=== PATIENT | female | born 1990 | race Caucasian/White ===

== ENCOUNTER 2021-05-14 13:12 | Emergency (ER) | payer SELFPAY ==
[2021-05-14] VITALS (7 sets, daily range): BP systolic 115–155; BP diastolic 63–90; PULSE 51–93; RESP 15–18; TEMP 36.3–36.9; O2SAT 98–100; BMI 22.1
--- NOTE | 2021-05-14 15:22 | MHC.RECOVRN ---
T/w met with pt briefly to explain that ATS beds have been unavailable and that it might take some time to be seen by ED provider. Pt open to being transported to [place] for [facility] to continue bedsearch. Pt reports dog with her is a service dog and must go with her to ATS. T/w reached out to [facility] to see if they can accommodate pt, awaiting call back.
--- NOTE | 2021-05-14 16:15 | MHC.RECOVRN ---
[facility] reports not being able to obtain ATS beds as well. [facility], [facility] will not accept pt with service dog. Pt aware.
--- NOTE | 2021-05-14 16:21 | MHC.RECOVRN ---
T/w spoke with pt to gather more information regarding substance use. 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 Pt reports having a blood infection that was diagnosed at [facility] in [place], [place] last week. Pt reports she was instructed to have 6 weeks of IV antibiotics, however, refused at the time. Pt c/o withdrawal symptoms and would like Suboxone when appropriate to start. Pt educated regarding precipitated withdrawal; states I'll be ready to start tomorrow. Pt reports being in [place] x 1 week, today car was taken, pt has no transportation to return to [place]. Case discussed with ED provider as well as Jessie Melgoza APRN.
--- NOTE | 2021-05-14 18:52 | ED.GENADULT ---
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 Patient emergency department admitted that she is homeless has no place to go patient slept in the emergency department for few hours. Patient has no specific complaints. Related Data Allergies Allergy/AdvReac Type Severity Reaction Status Date / Time No Known Allergies Allergy Verified 05/14/21 18:51 Review of Systems Review of Systems: All other systems are reviewed and are negative Constitutional: Reports as per HPI and Reports no additional constitutional complaints Eyes: Reports as per HPI and Reports no additional eye complaints Reports system reviewed and no additional complaints, except as documented Cardiovascular: Reports as per HPI and Reports no additional cardiovascular complaints Respiratory: Reports as per HPI and Reports no additional respiratory complaints Gastrointestinal: Reports as per HPI and Reports no additional gastrointestinal complaints Genitourinary: Reports no additional female genitourinary complaints Musculoskeletal: Reports no additional musculoskeletal complaints Skin/Breast: Reports system reviewed and no additional complaints, except as docu Psychiatric: Reports no additional psychiatric complaints Endocrine: Reports no additional endocrine complaints Hematologic/Lymphatic: Reports no additional hematologic/lymphatic complaints Allergic/Immunologic: Reports no additional allergic/immunologic complaints Reports system reviewed and no additional complaints, except as documented and Reports Abnormal speech present [facility] Past Medical History Medical History No known health problems No known health problems Social History Social History Advance Directives: No Advance Directives Information Provided: No Patient : Yes Physical Exam Vital Signs: Vital Signs: Last Vital Signs Temp 98.4 F 05/14/21 22:40 Pulse 51 05/14/21 22:40 Resp 16 05/14/21 22:40 BP 142/63 H 05/14/21 22:40 Pulse Ox 100 05/14/21 22:40 Body Mass Index 22.1 Vital signs have been reviewed as appeared to be correct. Blood pressure normal. Heart rate normal. Respiration rate normal. Temperature normal. Oxygen saturation normal. Appearance: Alert. Oriented X3. No acute distress. Head: Normal external exam. Normocephalic. Atraumatic. No Nickerson signs noted. No raccoon eyes noted Eyes: PERRLA. EOMI. Conjunctiva and sclera normal. Eyelids normal. ENT: TM's Normal. Pharynx normal. Uvula midline. Moist mucous membranes. No trismus noted. No drooling noted. No muffled voice noted. Neck: Normal inspection. Neck supple. FROM. No adenopathy. Thyroid Normal. No meningeal signs. No neck mass noted. CVS: Normal heart rate and rhythm. Heart sound normal. No murmurs noted. Pulses normal throughout. Respiratory: No respiratory distress. Painless inspiration. Breath sounds normal. No wheezes/rales/rhonchi noted. Chest nontender. No accessory muscle usage noted or decreased air movement noted. Abdomen: Soft and nontender. Bowel sounds normal in all 4 quadrants. No distention noted. No organomegaly noted. No visible injury noted. Back: No CVA tenderness. Full range of motion noted. Skin: Skin warm and dry. Normal skin color. Normal skin turgor. No rashes/lesions/lacerations noted. Extremities: No lower extremity edema. Extremities exhibit normal range of motion. Extremities nontender. Neuro: Oriented X 3. Cranial nerve exam: II-XII are grossly intact No motor deficit. No sensory deficit. Reflexes normal. Course Course Course Narrative: Assessment and plan. 30-year-old female with history of IV drug abuse, patient had a history of endocarditis and was concern of infection in her blood, patient at the same time is homeless has no place to go. Patient with stable vital signs, white count is normal, afebrile, no indication for infection at this point. Will discharge the patient in the morning with custodial list. Medical Decision Making Lab Data Lab results reviewed: Yes I reviewed the patient's lab results. Result diagrams: 05/14/21 21:04 05/14/21 21:04 Labs: Lab Results 05/14/21 05/14/21 05/14/21 Range/Units 21:02 21:04 21:04 WBC 6.9 (4.8-10.8) X10*3/uL RBC 4.77 (4.20-5.50) X10*6/uL Hgb 14.0 (12.0-16.0) g/dl Hct 39.9 (37-47) % MCV 83.6 (80-98) fL MCH 29.4 (27.0-33.0) pg MCHC 35.1 H (31.0-35.0) g/dl RDW 12.7 (11.0-16.0) % Plt Count 390 (160-400) X10*3/uL MPV 8.9 L (9.4-12.3) fL Immature Gran % (Auto) 0.3 (0.0-0.4) % Neut % (Auto) 58.9 (45-73) % Lymph % (Auto) 29.8 (20-40) % Tompkins % (Auto) 10.5 (2-11) % Eos % (Auto) 0.4 (0-4) % Baso % (Auto) 0.1 (0-2) % Lymph # (Auto) 2.1 (1.2-4.9) X10*3/uL Tompkins # (Auto) 0.7 (0.1-1.2) X10*3/uL Eos # (Auto) 0.0 (0.0-0.4) X10*3/uL Baso # (Auto) 0.0 (0.0-0.2) X10*3/uL Abs Immat Gran (auto) 0.02 (0.00-0.03) X10*3/uL Absolute Neuts (auto) 4.1 (2.0-8.3) X10*3/uL Absolute Nucleated RBC 0.000 (0.0-0.012) X10*3/uL Nucleated RBC % (auto) 0.0 (0.0-0.2) /100WBC Sodium 141 (135-145) mmol/L Potassium 3.5 (3.3-5.1) mmol/L Chloride 105 (96-108) mmol/L Carbon Dioxide 23 (22-29) mmol/L Anion Gap 17 (12-20) BUN 8 L (9-16) mg/dL Creatinine 0.73 (0.5-1.4) mg/dL Estim Creat Clear Calc 119.9 Estimated GFR > 60 Random Glucose 86 (60-115) mg/dL Lactic Acid 0.9 (0.5-2.0) mmol/L Calcium 9.6 (8.4-10.2) mg/dL Discharge Plan Discharge Clinical Impression: Substance abuse Patient Disposition: Home, Self-Care Instructions: Polysubstance Abuse (ED) Referrals: Physician,None [Primary Care Provider] - 2 days
[2021-05-14 21:12] LABS: MANUAL DIFF FLAG NO
[2021-05-14 21:15] LABS: Basophils Percent Auto 0.1 % (0-2); Eosinophils Percent Auto 0.4 % (0-4); Hematocrit 39.9 % (37-47); Imm Gran Abs Auto 0.02 X10*3/uL (0.00-0.03); Imm Gran Pct Auto 0.3 % (0.0-0.4); Lymphocytes Absolute Auto 2.1 X10*3/uL (1.2-4.9); Lymphocytes Percent Auto 29.8 % (20-40); Mean Corpuscular HGB Conc 35.1 g/dl (31.0-35.0); Mean Corpuscular Hemoglobin 29.4 pg (27.0-33.0); Mean Corpuscular Volume 83.6 fL (80-98); Mean Platelet Volume 8.9 fL (9.4-12.3); Monocytes Absolute Auto 0.7 X10*3/uL (0.1-1.2); Monocytes Percent Auto 10.5 % (2-11); Neutrophils Absolute Auto 4.1 X10*3/uL (2.0-8.3); Neutrophils Percent Auto 58.9 % (45-73); Platelet Count 390 X10*3/uL (160-400); Red Blood Count 4.77 X10*6/uL (4.20-5.50); Red Cell Distribution Width 12.7 % (11.0-16.0); White Blood Count 6.9 X10*3/uL (4.8-10.8)
[2021-05-14 21:26] LABS: Lactic Acid 0.9 mmol/L (0.5-2.0)
[2021-05-14 21:44] LABS: Anion Gap 17 (12-20); Blood Urea Nitrogen 8 mg/dL (9-16); Calcium 9.6 mg/dL (8.4-10.2); Carbon Dioxide 23 mmol/L (22-29); Chloride 105 mmol/L (96-108); Creatinine Clr Calc Pharmacy 119.9; Estimated Glomerular Filt Rate > 60; Glucose Random 86 mg/dL (60-115); Potassium 3.5 mmol/L (3.3-5.1); Sodium 141 mmol/L (135-145)
--- NOTE | 2021-05-15 00:59 | PC.NURSE ---
pt sleeping with her service dog at the foot of her bed. pt has been oob to bathroom with steady gait. pt states she has been sleeping out of her car. dog and pt given water and a sandwhich that the pt shared with the dog. dog was taken outside by a staff member to walk him.
--- NOTE | 2021-05-15 01:39 | PC.NURSE ---
pt is homeless and with charges ok pt will be allowed to stay till 0600
--- NOTE | 2021-05-15 04:04 | PC.NURSE ---
pt is discharged and is allowed to sleep in the ed with her dog due to she is homeless and approved it.
== END 2021-05-15 05:48 | disposition home or self-care (01) ==
PROVIDERS: Emergency Provider Emergency Medicine
DX: F19.10 Other psychoactive substance abuse, uncomplicated (principal); Z59.0 Homelessness
CPT/HCPCS: 36415; 80048; 83605; 85025; 87040; 87077; 87147; 87186; 87205; 99284